=== PATIENT | female | born 1950 | race American Indian/Alaskan Native ===

== ENCOUNTER 2022-01-03 07:31 | Inpatient (IN) | payer OTHER ==
[~2022-01-03] VITALS: Ht 157.5 cm; Wt 87.5 kg
[~2022-01-03 07:31] MED LIST: ATOR10TA52 PO; DULA1INJ SC; HYDR1TAB97 PO; METF-370 PO; METF-372 PO; SITA100T7 PO
[2022-01-03] MEDS ORDERED: ceFAZolin 1GM/50ML 100 ML IV ONE (08:19)
[2022-01-03] MEDS ORDERED: MIDAZOLAM HCL 2MG/2ML 2ml VIAL (1mg/ml) ONE (09:57)
[2022-01-03] MEDS ORDERED: HYDROmorphone HCL 2 MG/ML VL/or syr ONE ×2 (09:57→15:53)
[2022-01-03] MEDS ORDERED: fentaNYL CITRATE 5 ML ONE (09:57)
[2022-01-03] MEDS ORDERED: PROPOFOL 10 MG/ML 20 ML IV ONE (10:16)
[2022-01-03] MEDS ORDERED: ONDANSETRON HCL 4 MG/2 ML VIAL ONE ×2 (10:16→16:02)
[2022-01-03] MEDS ORDERED: GLYCOPYRROLATE 0.2 MG/ML 1ML VIAL ONE (10:16)
[2022-01-03] MEDS ORDERED: ROCURONIUM 10MG/ML 10ML VIAL IV ONE ×2 (10:16→11:31)
[2022-01-03] MEDS ORDERED: LIDOCAINE 2% (LOCAL ANESTH.) PF 5ml SDV ONE (10:16)
[2022-01-03] MEDS ORDERED: DexAMETHasone SOD PHOS 10MG/1ML VIAL INJ ONE (10:16)
[2022-01-03] MEDS ORDERED: BUPIVACAINE W/ EPINEPH 0.5% INJ 50ML MDV IJ ONE (10:27)
[2022-01-03] MEDS ORDERED: MINERAL OIL TOPICAL 10ml TOP ONE (10:28)
[2022-01-03] MEDS ORDERED: THROMBIN (BOVINE) 5000 UNIT SOL VIAL ONE (10:28)
[2022-01-03] MEDS ORDERED: VANCOMYCIN HCL 1000 MG VL ONE (10:28)
[2022-01-03] MEDS ORDERED: PROPOFOL 0 ML IV ONE (10:29)
[2022-01-03] MEDS ORDERED: fentaNYL CITRATE 100 MCG/2 ML VL ONE (11:22)
[2022-01-03] MEDS ORDERED: HYDROCORTISONE SOD SUCC 100 MG/2ML INJ VIAL ONE (11:35)
[2022-01-03] MEDS ORDERED: TRANEXAMIC ACID 10 ML ONE ×2 (12:03→12:53)
[2022-01-03] MEDS ORDERED: SUGAMMADEX 200mg/2ml Vial (100MG/ML) IV ONE (14:22)
[2022-01-03] MEDS: HYDROmorphone HCL 2 MG/ML VL/or syr IV PRN ×2 (15:54→16:15)
[2022-01-03] MEDS ORDERED: ONDANSETRON HCL 4 MG/2 ML VIAL IV PRN ×2 (16:00→16:15)
[2022-01-03] MEDS ORDERED: HYDROmorphone HCL 2 MG/ML VL/or syr IV PRN (16:00)
[2022-01-03] MEDS ORDERED: NITROGLYCERIN 0.4 MG SL TAB SL PRN (16:00)
[2022-01-03] MEDS ORDERED: MORPHINE SULFATE INJECTION 2 MG/ML SYRG IV PRN (16:00)
[2022-01-03] MEDS: LACTATED RINGER'S 1,000 ML IV SCH (16:00)
[2022-01-03] MEDS ORDERED: ACCU-CHEK COMFORT CURVE STRIP VI ONE (16:15)
[2022-01-03 16:54] LABS: Basophils # (auto) 0.1 10 ^3/uL (0-0.2); Basophils % (auto) 0.5 % (0.0-2.0); Eosinophils # (auto) 0 10 ^3/uL (0-0.8); Eosinophils % (auto) 0.1 % (0.0-7.0); Hematocrit 26.9 % (36.0-46.0); Hemoglobin 8.3 g/dL (12.2-16.2); Lymphocytes # (auto) 0.9 10 ^3/uL (0.4-5.4); Lymphocytes % (auto) 7.4 % (10.0-50.0); Mean Corpuscular Hemoglobin 23.4 pg (28.0-32.0); Mean Corpuscular Hgb Conc. 30.8 g/dL (32.0-36.0); Monocytes # (auto) 0.2 10 ^3/uL (0-1.3); Monocytes % (auto) 1.3 % (0.0-12.0); Neutrophils # (auto) 10.7 10 ^3/uL (1.6-8.6); Neutrophils % (auto) 90.7 % (37.0-80.0); Red Blood Cells 3.53 10^6/uL (4.0-5.20); White Blood Cell 11.8 10^3/uL (4.4-10.8)
[2022-01-03 17:00] VITALS: BP 97/46
[2022-01-03 17:45] VITALS: BP 97/46
[2022-01-03] MEDS: HYDROCORTISONE SOD SUCC 100 MG/2ML INJ VIAL IV SCH (18:48)
[2022-01-03] MEDS: OXYCODONE W/ ACETAMINOPHEN 5/325MG TABLET PO PRN ×2 (19:29→23:37)
[2022-01-03] MEDS: oxyCODONE HCL 5MG TAB PO PRN (21:10)
[2022-01-03] MEDS: SENNA 8.6 MG TAB PO SCH (21:48)
[2022-01-03] MEDS: DOCUSATE SOD 100 MG CAP PO SCH (21:48)
[2022-01-03] MEDS: ceFAZolin 1GM/50ML 50 ML IV SCH (21:48)
[2022-01-03 22:00] VITALS: BP 104/51
[2022-01-03] MEDS ORDERED: ceFAZolin 1GM/50ML 50 ML IV SCH (22:00)
[2022-01-04] MEDS: THROAT LOZENGES(CEPASTAT) MT PRN ×5 (00:41→22:50)
[2022-01-04] MEDS: LACTATED RINGER'S 1,000 ML IV SCH ×3 (02:17→22:00)
[2022-01-04] MEDS: HYDROCORTISONE SOD SUCC 100 MG/2ML INJ VIAL IV SCH ×3 (03:46→22:25)
[2022-01-04] MEDS: OXYCODONE W/ ACETAMINOPHEN 5/325MG TABLET PO PRN ×3 (03:47→18:43)
[2022-01-04 05:00] VITALS: BP 105/56
[2022-01-04] MEDS ORDERED: DEXTROSE (50%) 50ML SYRG IV PRN (05:30)
[2022-01-04] MEDS: ceFAZolin 1GM/50ML 50 ML IV SCH ×2 (06:14→13:49)
[2022-01-04 06:23] LABS: Basophils # (auto) 0 10 ^3/uL (0-0.2); Eosinophils # (auto) 0 10 ^3/uL (0-0.8); Hemoglobin 7.6 g/dL (12.2-16.2)
[2022-01-04 06:25] LABS: Basophils % (auto) 0.1 % (0.0-2.0); Lymphocytes # (auto) 1.1 10 ^3/uL (0.4-5.4); Lymphocytes % (auto) 7.6 % (10.0-50.0); Mean Corpuscular Hemoglobin 24.7 pg (28.0-32.0); Monocytes # (auto) 1.2 10 ^3/uL (0-1.3); Monocytes % (auto) 8.5 % (0.0-12.0); Neutrophils # (auto) 11.7 10 ^3/uL (1.6-8.6); Neutrophils % (auto) 83.8 % (37.0-80.0); Red Blood Cells 3.07 10^6/uL (4.0-5.20); Red Cell Distribution Width 16.7 % (11.8-14.3)
[2022-01-04 06:31] LABS: Calcium 8.5 mg/dL (8.5-10.1); Potassium 4.4 mmol/L (3.5-5.1)
[2022-01-04 06:34] LABS: BUN/Creatinine Ratio 17.7
[2022-01-04 08:00] VITALS: BP 117/53
[2022-01-04] MEDS ORDERED: InsuLIN REG 1unit/0.01ml Soln (100units/ml) SC SCH (08:00)
[2022-01-04] MEDS ORDERED: ACCU-CHEK COMFORT CURVE STRIP VI SCH ×2 (08:00→11:30)
[2022-01-04] MEDS: DOCUSATE SOD 100 MG CAP PO SCH ×2 (08:52→22:26)
[2022-01-04] MEDS: POLYETHYLENE GLYCOL 17 GM PWDR PO SCH (08:55)
[2022-01-04] MEDS ORDERED: HYDROmorphone HCL 2 MG/ML VL/or syr IV PRN (09:30)
[2022-01-04] MEDS: InsuLIN REG 1unit/0.01ml Soln (100units/ml) SC SCH ×3 (11:30→22:47)
[2022-01-04 12:00] VITALS: BP 91/48
[2022-01-04] MEDS ORDERED: HEPARIN SODIUM (PORCINE) 5000 UNITS/ML 1ML VIAL SC SCH ×2 (12:00→22:00)
[2022-01-04] MEDS ORDERED: SODIUM FERR GLUC 62.5MG/5ML 125 MG in SODIUM CHL 0.9% 100 ML IV SCH (12:00)
[2022-01-04] MEDS: HEPARIN SODIUM (PORCINE) 5000 UNITS/ML 1ML VIAL SC SCH ×2 (13:58→22:30)
[2022-01-04 16:00] VITALS: BP 106/51
[2022-01-04] MEDS: ACCU-CHEK COMFORT CURVE STRIP VI SCH ×2 (17:00→22:27)
[2022-01-04 22:00] VITALS: BP 108/52
[2022-01-04] MEDS ORDERED: ATORVASTATIN 20 MG TAB PO SCH (22:00)
[2022-01-04] MEDS: SENNA 8.6 MG TAB PO SCH (22:27)
[2022-01-04] MEDS: oxyCODONE HCL 5MG TAB PO PRN (22:36)
[2022-01-05] MEDS: HYDROCORTISONE SOD SUCC 100 MG/2ML INJ VIAL IV SCH ×2 (02:50→11:30)
[2022-01-05] MEDS: oxyCODONE HCL 5MG TAB PO PRN ×3 (02:50→11:55)
[2022-01-05] MEDS: THROAT LOZENGES(CEPASTAT) MT PRN ×2 (02:56→09:22)
[2022-01-05 05:00] VITALS: BP 121/54
[2022-01-05 06:22] LABS: Basophils # (auto) 0 10 ^3/uL (0-0.2); Basophils % (auto) 0.1 % (0.0-2.0); Eosinophils # (auto) 0 10 ^3/uL (0-0.8); Hematocrit 25.7 % (36.0-46.0); Hemoglobin 8.2 g/dL (12.2-16.2); Lymphocytes # (auto) 1.1 10 ^3/uL (0.4-5.4); Lymphocytes % (auto) 6.9 % (10.0-50.0); Mean Corpuscular Hemoglobin 23.9 pg (28.0-32.0); Mean Corpuscular Hgb Conc. 31.8 g/dL (32.0-36.0); Mean Corpuscular Volume 75.1 fL (80.0-100.0); Monocytes # (auto) 0.7 10 ^3/uL (0-1.3); Monocytes % (auto) 4.7 % (0.0-12.0); Neutrophils # (auto) 13.9 10 ^3/uL (1.6-8.6); Neutrophils % (auto) 88.3 % (37.0-80.0); Red Blood Cells 3.42 10^6/uL (4.0-5.20); Red Cell Distribution Width 17.2 % (11.8-14.3); White Blood Cell 15.8 10^3/uL (4.4-10.8)
[2022-01-05 06:29] LABS: INR 1.01 (0.9-1.15); Partial Thromboplastin Time 25.2 sec (23.6-33.0)
[2022-01-05 06:30] LABS: BUN/Creatinine Ratio 12.5; Calcium 8.9 mg/dL (8.5-10.1)
[2022-01-05] MEDS: InsuLIN REG 1unit/0.01ml Soln (100units/ml) SC SCH ×2 (06:48→11:47)
[2022-01-05] MEDS: ACCU-CHEK COMFORT CURVE STRIP VI SCH ×2 (06:50→11:45)
[2022-01-05] MEDS: LACTATED RINGER'S 1,000 ML IV SCH (08:04)
[2022-01-05 09:00] VITALS: BP 96/47
[2022-01-05] MEDS: DOCUSATE SOD 100 MG CAP PO SCH (09:21)
[2022-01-05] MEDS: POLYETHYLENE GLYCOL 17 GM PWDR PO SCH (09:21)
[2022-01-05] MEDS: HEPARIN SODIUM (PORCINE) 5000 UNITS/ML 1ML VIAL SC SCH (09:22)
[2022-01-05 11:01] VITALS: BP 96/47
== END 2022-01-05 12:00 | disposition home or self-care (01) | DRG 460 ==
LOC: SUR 07:31 → OVERFLOW 15:51 → CENTRAL 17:51
PROVIDERS: ADMIT Physician Assistant; ATTEND Physician Assistant
PROC: 01NB0ZZ Release Lumbar Nerve, Open Approach (ICD-10-PCS; 2022-01-03)
PROC: 00UT0KZ Supplement Spinal Meninges with Nonautologous Tissue Substitute, Open Approach (ICD-10-PCS; 2022-01-03)
PROC: 4A11X4G Monitoring of Peripheral Nervous Electrical Activity, Intraoperative, External Approach (ICD-10-PCS; 2022-01-03)
PROC: 0SG1071 Fusion of 2 or more Lumbar Vertebral Joints with Autologous Tissue Substitute, Posterior Approach, Posterior Column, Open Approach (ICD-10-PCS; principal; 2022-01-03 11:18)
DX: M48.062 Spinal stenosis, lumbar region with neurogenic claudication (principal); G97.41 Accidental puncture or laceration of dura during a procedure; D62 Acute posthemorrhagic anemia; Z20.822 Contact with and (suspected) exposure to COVID-19; E11.9 Type 2 diabetes mellitus without complications; E78.00 Pure hypercholesterolemia, unspecified; Y83.8 Other surgical procedures as the cause of abnormal reaction of the patient, or of later complication, without mention of misadventure at the time of the procedure; Y92.238 Other place in hospital as the place of occurrence of the external cause
CPT/HCPCS: 36415; 72100; 76000; 80048; 82962; 85025; 85610; 85730; 86850; 86900; 86901; 97163; G0378; J0690; J1100; J1815; J2001; J2250; J2405; J2704

== ENCOUNTER 2023-06-10 10:14 | Inpatient (IN) | payer OTHER ==
[~2023-06-10] VITALS: Ht 157.5 cm; Wt 92.4 kg
[~2023-06-10 10:14] MED LIST changes: -HYDR1TAB97 PO; +OXYC-963 PO; +PREG-109 PO; +VIBE75TA PO
[2023-06-10] MEDS ORDERED: ceFAZolin 1GM/50ML 100 ML IV ONE (10:53)
[2023-06-10] MEDS ORDERED: MEPERIDINE HCL (50 MG/ML) 1 ML VIAL ONE (11:52)
[2023-06-10] MEDS ORDERED: NEOSTIGMINE 1 MG/ML INJ (10mg/10ML VIAL) ONE (11:52)
[2023-06-10] MEDS ORDERED: MIDAZOLAM HCL 2MG/2ML 2ml VIAL (1mg/ml) ONE ×2 (11:52→14:12)
[2023-06-10] MEDS ORDERED: ONDANSETRON HCL 4 MG/2 ML VIAL ONE (11:52)
[2023-06-10] MEDS ORDERED: fentaNYL CITRATE 100 MCG/2 ML VL ONE ×2 (11:52→12:55)
[2023-06-10] MEDS ORDERED: ROCURONIUM 10MG/ML 10ML VIAL IV ONE (11:52)
[2023-06-10] MEDS ORDERED: PROPOFOL 10 MG/ML 20 ML IV ONE (11:52)
[2023-06-10] MEDS ORDERED: TRANEXAMIC ACID 20 ML ONE (13:01)
[2023-06-10] MEDS ORDERED: LIDOCAINE 1%-Mpf/Epinephrine 1:200,000 30ml VIAL ONE (13:02)
[2023-06-10] MEDS ORDERED: LIDOCAINE 2% JELLY 11ml (GLYDO) ONE (13:15)
[2023-06-10] MEDS ORDERED: NEOMYCIN-BACITRACIN-POLYM 15GM TOP OINT TOP ONE (14:58)
[2023-06-10] MEDS ORDERED: MIDAZOLAM HCL 2MG/2ML 2ml VIAL (1mg/ml) IV PRN (15:00)
[2023-06-10] MEDS ORDERED: LABETALOL HCL 5 MG/ML 4ML SYRINGE IV PRN (15:00)
[2023-06-10] MEDS ORDERED: HYDROmorphone HCL 2 MG/ML VL/or syr IV PRN (15:00)
[2023-06-10] MEDS ORDERED: ACCU-CHEK COMFORT CURVE STRIP VI ONE (15:00)
[2023-06-10] MEDS ORDERED: ePHEDrine SULFATE 50 MG/ML AMP IV PRN (15:00)
[2023-06-10] MEDS ORDERED: ONDANSETRON HCL 4 MG/2 ML VIAL IV PRN ×2 (15:00→15:45)
[2023-06-10] MEDS ORDERED: MORPHINE SULFATE 4 MG/ML SYR/VIAL IV PRN (15:00)
[2023-06-10] MEDS ORDERED: SUGAMMADEX 200mg/2ml Vial (100MG/ML) IV ONE (15:22)
[2023-06-10] MEDS ORDERED: MORPHINE SULFATE INJ 2 MG/ml SYRG IV PRN (15:45)
[2023-06-10] MEDS ORDERED: NITROGLYCERIN 0.4 MG SL TAB SL PRN (15:45)
[2023-06-10] MEDS ORDERED: ACETAMINOPHEN 325 MG TAB PO PRN (15:45)
[2023-06-10 16:10] VITALS: RESP 14; O2SAT 93; O2SAT 97
[2023-06-10] MEDS ORDERED: HYDROmorphone HCL 2 MG/ML VL/or syr IV ONE ×3 (16:26→16:46)
[2023-06-10] MEDS ORDERED: CYCLOBENZAPRINE HCL 10 MG TAB PO ONE (16:30)
[2023-06-10] MEDS: CYCLOBENZAPRINE HCL 10 MG TAB PO SCH (16:30)
[2023-06-10] MEDS: ceFAZolin 1GM/50ML 50 ML IV SCH (17:52)
[2023-06-10] MEDS: D5W/SOD CHLO 0.9% 1,000 ML IV SCH (17:52)
[2023-06-10 20:30] VITALS: PULSE 100
[2023-06-10] MEDS: MORPHINE SULFATE INJ 2 MG/ml SYRG IV PRN (20:49)
[2023-06-10 22:00] VITALS: BP 111/69; PULSE 97; RESP 18; TEMP 98.1; O2SAT 93
[2023-06-10] MEDS: HYDROcodone-ACET 10/325MG TAB PO PRN (23:30)
[2023-06-10] MEDS: DOCUSATE SOD 100 MG CAP PO SCH (23:31)
[2023-06-11] VITALS (7 sets, daily range): BP systolic 120–134; BP diastolic 54–73; PULSE 91–107; RESP 17–18; TEMP 98.4–99.5; O2SAT 93–96
[2023-06-11] MEDS: ceFAZolin 1GM/50ML 50 ML IV SCH (00:52)
[2023-06-11] MEDS: MORPHINE SULFATE INJ 2 MG/ml SYRG IV PRN ×3 (00:52→10:13)
[2023-06-11] MEDS: D5W/SOD CHLO 0.9% 1,000 ML IV SCH ×3 (01:45→21:45)
[2023-06-11] MEDS: CYCLOBENZAPRINE HCL 10 MG TAB PO SCH ×3 (05:57→21:54)
[2023-06-11] MEDS: DOCUSATE SOD 100 MG CAP PO SCH ×3 (08:32→21:54)
[2023-06-11] MEDS: HYDROcodone-ACET 10/325MG TAB PO PRN ×2 (11:57→18:21)
[2023-06-11] MEDS ORDERED: ATOR10TA52 PO (16:23)
[2023-06-11] MEDS ORDERED: METF-372 PO (16:29)
[2023-06-11] MEDS ORDERED: PREG75CA PO (16:29)
[2023-06-11] MEDS ORDERED: OXYC325T14 PO (16:29)
[2023-06-11] MEDS ORDERED: SITA100T7 PO (16:29)
[2023-06-11] MEDS ORDERED: VIBE75TA PO (16:29)
[2023-06-11] MEDS ORDERED: METF-370 PO (16:29)
[2023-06-11] MEDS ORDERED: DEXTROSE (50%) 50ML SYRG IV PRN (17:00)
[2023-06-11] MEDS: ACCU-CHEK COMFORT CURVE STRIP VI SCH ×2 (17:30→22:11)
[2023-06-11] MEDS: InsuLIN REG 1unit/0.01ml Soln (100units/ml) SC SCH (17:40)
[2023-06-11] MEDS ORDERED: InsuLIN REG 1unit/0.01ml Soln (100units/ml) SC SCH (22:00)
[2023-06-12] MEDS: InsuLIN REG 1unit/0.01ml Soln (100units/ml) SC SCH ×2 (07:00→11:30)
[2023-06-12] MEDS: ACCU-CHEK COMFORT CURVE STRIP VI SCH ×2 (07:00→11:30)
[2023-06-12] MEDS: D5W/SOD CHLO 0.9% 1,000 ML IV SCH (07:45)
[2023-06-12 08:00] VITALS: RESP 18
[2023-06-12 08:30] VITALS: PULSE 91
[2023-06-12] MEDS: DOCUSATE SOD 100 MG CAP PO SCH (10:00)
[2023-06-12] MEDS ORDERED: OXYCODONE W/ ACETAMINOPHEN 5/325MG TABLET PO PRN (11:30)
[2023-06-12] MEDS: CYCLOBENZAPRINE HCL 10 MG TAB PO SCH ×2 (14:00→15:51)
[2023-06-12 16:39] VITALS: BP 111/60; PULSE 117; RESP 18; TEMP 98.6; O2SAT 93
== END 2023-06-12 17:35 | disposition home health service (06) | DRG 460 ==
LOC: SUR 10:14 → TELE 15:40 → TELE-CENTR 17:55
PROVIDERS: ADMIT Orthopaedic Surgery; ATTEND Orthopaedic Surgery
PROC: 0SG00AJ Fusion of Lumbar Vertebral Joint with Interbody Fusion Device, Posterior Approach, Anterior Column, Open Approach (ICD-10-PCS; principal; 2023-06-12)
PROC: 0SG10A0 Fusion of 2 or more Lumbar Vertebral Joints with Interbody Fusion Device, Anterior Approach, Anterior Column, Open Approach (ICD-10-PCS; 2023-06-12)
PROC: 01NB0ZZ Release Lumbar Nerve, Open Approach (ICD-10-PCS; 2023-06-12)
PROC: 00NY0ZZ Release Lumbar Spinal Cord, Open Approach (ICD-10-PCS; 2023-06-12)
PROC: 4A11X4G Monitoring of Peripheral Nervous Electrical Activity, Intraoperative, External Approach (ICD-10-PCS; 2023-06-12)
DX: M48.061 Spinal stenosis, lumbar region without neurogenic claudication (principal); M96.1 Postlaminectomy syndrome, not elsewhere classified; Z83.3 Family history of diabetes mellitus; M54.16 Radiculopathy, lumbar region; Y83.8 Other surgical procedures as the cause of abnormal reaction of the patient, or of later complication, without mention of misadventure at the time of the procedure; Y92.89 Other specified places as the place of occurrence of the external cause
CPT/HCPCS: 72100; 76000; 82962; 86850; 86900; 86901; 97110; 97116; 97163; 97530; G0378; J0690; J1815; J2250; J2405; J2704; J7042